=== PATIENT | female | born 1990 | race Caucasian/White ===

== ENCOUNTER 2018-04-14 12:32 | Observation (INO) | payer BC, MEDICAID ==
[~2018-04-14] VITALS: Ht 5787.1 cm; Wt 59.0 kg
[~2018-04-14 12:32] MED LIST: ALPR1TAB2 PO; BUPR300T53 PO; LIT300C PO; PRAZ5CAP PO; TRAZ-146 PO; VENL150C2 PO; VENL75CA55 PO; ZOLP10TA5 PO
[2018-04-14] MEDS ORDERED: normal saline 1000ml 1,000 ML IV ONE (12:45)
[2018-04-14] MEDS ORDERED: magnesium 2GM in 50ml NS 50 ML IV ONE (13:05)
[2018-04-14 13:08] LABS: BASOPHILS % (AUTO) 0 % (0-1); EOSINOPHILS # (AUTO) 0.2 X10'3 (0-0.9); EOSINOPHILS % (AUTO) 1.6 % (0-6); HEMATOCRIT 37.1 % (35.0-45.0); HEMOGLOBIN 12.6 g/dl (12.0-16.0); LYMPHOCYTES # (AUTO) 0.5 X10'3 (1.1-4.8); LYMPHOCYTES % (AUTO) 4.8 % (21-51); MEAN CORPUSCULAR HEMOGLOBIN 30.7 PG (27.0-31.0); MEAN CORPUSCULAR HGB CONC 33.9 % (33.0-36.5); MEAN CORPUSCULAR VOLUME 90.6 FL (78-98); MEAN PLATELET VOLUME 8.8 FL (7.4-10.4); MONOCYTES # (AUTO) 0.5 X10'3 (0-0.9); MONOCYTES % (AUTO) 4.6 % (2-12); NEUTROPHILS # (AUTO) 9.4 X10'3 (1.8-7.7); PLATELET COUNT 306 X10'3 (140-440); RED CELL DISTRIBUTION WIDTH 13.2 % (11.5-14.5); WHITE BLOOD COUNT 10.6 X10'3 (4.5-11.0)
[2018-04-14 13:16] LABS: ABG BASE EXCESS -4.3 mmol/L (-2.0-3.0); ABG HCO3 20.2 mmol/L (22.0-26.0); ABG OXYGEN SATURATION 96.2 % (95-98); ABG PCO2 (T) 35.3 mmHg (32.0-45.0); ABG PH (T) 7.375 (7.350-7.450); ABG PO2 (T) 86.8 mmHg (83-108); FCOHb 0.7 % (0.5-1.5); FMetHb 0.2 % (0.3-1.12); FO2Hb 95.3 % (94-100); TOTAL HEMOGLOBIN 12.5 G/dl (12.0-16.0)
[2018-04-14 13:22] LABS: ALANINE AMINOTRANSFERASE 16 U/L (12-78); ALBUMIN 3.3 G/DL (3.4-5.0); ALBUMIN/GLOBULIN RATIO 0.9 (1.1-1.5); ALKALINE PHOSPHATASE 63 IU/L (46-116); ANION GAP 11 (8-16); ASPARTATE AMINO TRANSFERASE 13 U/L (10-37); BILIRUBIN,TOTAL 0.3 MG/DL (0.1-1.0); BLOOD UREA NITROGEN 14 MG/DL (7-18); BUN/CREATININE RATIO 15.1 (6.6-38.0); CALCIUM 8.5 MG/DL (8.5-10.1); CHLORIDE 106 MMOL/L (99-107); CREATININE 0.93 MG/DL (0.40-0.90); GLUCOSE 117 MG/DL (70-104); POTASSIUM 3.4 MMOL/L (3.5-5.1); SODIUM 143 MMOL/L (135-145); TOTAL CARBON DIOXIDE 25.9 MMOL/L (24-32); TOTAL PROTEIN 6.8 G/DL (6.4-8.2); eGFR 71 ML/MIN
[2018-04-14 13:31] LABS: ETHANOL < 0.010 GM/DL (0.0-0.010)
[2018-04-14 13:37] LABS: ACETAMINOPHEN < 2.0 UG/ML (10-30)
[2018-04-14 13:55] LABS: URINE HCG NEGATIVE (NEG)
[2018-04-14 14:01] LABS: CLARITY,URINE CLEAR (Clear); COLOR,URINE YELLOW (Yellow); GLUCOSE, URINE NEGATIVE (Neg); KETONES,URINE NEGATIVE (Neg); LEUKOCYTE ESTERASE ,URINE NEGATIVE (Neg); NITRITES, URINE NEGATIVE (Neg); OCCULT BLOOD,URINE TRACE-INTACT (Neg); PROTEIN,URINE NEGATIVE (Neg); UROBILINOGEN,URINE 0.2 E.U/dL (0.2-1.0)
[2018-04-14 14:07] LABS: UA COLLECTION TYPE CLN CATCH MIDSTREAM
[2018-04-14 14:08] LABS: URINE AMPHETAMINE SCREEN POSITIVE (Neg); URINE BARBITUATE SCREEN NEGATIVE (Neg); URINE BENZODIAZEPINES SCREEN POSITIVE (Neg); URINE CANNABINOID SCREEN POSITIVE (Neg); URINE COCAINE SCREEN NEGATIVE (Neg); URINE METHADONE SCREEN NEGATIVE (Neg); URINE OPIATE SCREEN NEGATIVE (Neg); URINE PHENCYCLIDINE SCREEN NEGATIVE (Neg)
[2018-04-14 14:15] LABS: BACTERIA,URINE NONE SEEN /HPF (Neg); MUCUS STRANDS FEW /LPF (Neg); RBC,URINE 0-2 /HPF (0-2); SQUAMOUS EPITHELIAL CELL,UR FEW /LPF (FEW); WBC,URINE 0-4 /HPF (0-4)
[2018-04-14] MEDS ORDERED: iohexol 350MG/ML 100ml bottle IV ONE (18:19)
[2018-04-14] MEDS ORDERED: mag hydrox/Alum hydrox/simeth 30ml oral suspension PO PRN (23:00)
[2018-04-14] MEDS ORDERED: magnesium hydroxide 30ml (MOM) UD suspension PO PRN (23:00)
[2018-04-15] MEDS: dextrose 5%-1/2 normal saline 1,000 ML IV SCH ×4 (01:17→21:10)
[2018-04-15 01:37] VITALS: BP 98/61
[2018-04-15 06:03] LABS: BASOPHILS % (AUTO) 0.1 % (0-1); EOSINOPHILS # (AUTO) 0.2 X10'3 (0-0.9); EOSINOPHILS % (AUTO) 2.4 % (0-6); HEMOGLOBIN 11.2 g/dl (12.0-16.0); LYMPHOCYTES # (AUTO) 0.7 X10'3 (1.1-4.8); LYMPHOCYTES % (AUTO) 12.1 % (21-51); MEAN CORPUSCULAR HEMOGLOBIN 30.7 PG (27.0-31.0); MEAN CORPUSCULAR HGB CONC 33.9 % (33.0-36.5); MEAN CORPUSCULAR VOLUME 90.4 FL (78-98); MEAN PLATELET VOLUME 9.2 FL (7.4-10.4); MONOCYTES # (AUTO) 0.4 X10'3 (0-0.9); MONOCYTES % (AUTO) 6.8 % (2-12); NEUTROPHILS # (AUTO) 4.9 X10'3 (1.8-7.7); NEUTROPHILS % (AUTO) 78.6 % (42-75); PLATELET COUNT 255 X10'3 (140-440); RED BLOOD COUNT 3.65 X10'6 (4.20-5.60); RED CELL DISTRIBUTION WIDTH 13.2 % (11.5-14.5); WHITE BLOOD COUNT 6.2 X10'3 (4.5-11.0)
[2018-04-15 06:09] LABS: PARTIAL THROMBOPLASTIN TIME 25 SECONDS (22-32)
[2018-04-15 06:26] LABS: ALANINE AMINOTRANSFERASE 18 U/L (12-78); ALBUMIN 2.9 G/DL (3.4-5.0); ALBUMIN/GLOBULIN RATIO 0.9 (1.1-1.5); ALKALINE PHOSPHATASE 58 IU/L (46-116); ANION GAP 10 (8-16); ASPARTATE AMINO TRANSFERASE 14 U/L (10-37); BILIRUBIN,TOTAL 0.3 MG/DL (0.1-1.0); BLOOD UREA NITROGEN 5 MG/DL (7-18); BUN/CREATININE RATIO 5.5 (6.6-38.0); CALCIUM 8.2 MG/DL (8.5-10.1); CHLORIDE 108 MMOL/L (99-107); CREATININE 0.91 MG/DL (0.40-0.90); GLUCOSE 112 MG/DL (70-104); MAGNESIUM 2.1 MG/DL (1.5-2.4); PHOSPHORUS 2.8 MG/DL (2.3-4.5); POTASSIUM 3.1 MMOL/L (3.5-5.1); SODIUM 144 MMOL/L (135-145); TOTAL CARBON DIOXIDE 25.8 MMOL/L (24-32); TOTAL PROTEIN 6.3 G/DL (6.4-8.2); eGFR 73 ML/MIN
[2018-04-15] MEDS ORDERED: potassium Cl 40MEQ/NS 500ml 500 ML IV PRN ×2 (06:45)
[2018-04-15] MEDS ORDERED: magnesium 2GM in 50ml NS 50 ML IV PRN (06:45)
[2018-04-15] MEDS ORDERED: magnesium Cl slow-release 64mg tablet PO PRN (06:45)
[2018-04-15] MEDS ORDERED: magnesium 4gm in 100ml NS 100 ML IV PRN (06:45)
[2018-04-15] MEDS ORDERED: potassium Cl 20 mEq SR tablet PO PRN ×2 (06:45)
[2018-04-15 07:38] VITALS: BP 114/69
[2018-04-15] MEDS ORDERED: LORazepam 2 mg/ml vial IV ONE (09:20)
[2018-04-15 11:20] VITALS: BP 97/52
[2018-04-15] MEDS ORDERED: potassium Cl 20 mEq SR tablet PO STA (13:09)
[2018-04-15] MEDS: LORazepam 1 MG tablet PO PRN (16:57)
[2018-04-15] MEDS: ondansetron/PF 4mg/2ml inj IV PRN (17:18)
[2018-04-15 20:00] VITALS: BP 116/76
[2018-04-16] MEDS: LORazepam 1 MG tablet PO PRN ×2 (02:18→08:05)
[2018-04-16] MEDS: ondansetron/PF 4mg/2ml inj IV PRN (02:19)
[2018-04-16] MEDS ORDERED: acetaminophen 325mg tablet PO PRN (02:25)
[2018-04-16 05:54] LABS: BASOPHILS % (AUTO) 0.1 % (0-1); EOSINOPHILS # (AUTO) 0.1 X10'3 (0-0.9); EOSINOPHILS % (AUTO) 2.2 % (0-6); HEMATOCRIT 33.7 % (35.0-45.0); HEMOGLOBIN 11.5 g/dl (12.0-16.0); LYMPHOCYTES # (AUTO) 1.2 X10'3 (1.1-4.8); LYMPHOCYTES % (AUTO) 19.1 % (21-51); MEAN CORPUSCULAR VOLUME 91.1 FL (78-98); MEAN PLATELET VOLUME 9.3 FL (7.4-10.4); MONOCYTES # (AUTO) 0.5 X10'3 (0-0.9); MONOCYTES % (AUTO) 8.1 % (2-12); NEUTROPHILS # (AUTO) 4.3 X10'3 (1.8-7.7); NEUTROPHILS % (AUTO) 70.5 % (42-75); PLATELET COUNT 248 X10'3 (140-440); RED CELL DISTRIBUTION WIDTH 13.2 % (11.5-14.5); WHITE BLOOD COUNT 6.1 X10'3 (4.5-11.0)
[2018-04-16 06:07] LABS: PARTIAL THROMBOPLASTIN TIME 24 SECONDS (22-32); PROTHROMBIN TIME 9.9 SECONDS (9.0-12.0)
[2018-04-16 06:16] LABS: ALANINE AMINOTRANSFERASE 22 U/L (12-78); ALBUMIN 2.8 G/DL (3.4-5.0); ALBUMIN/GLOBULIN RATIO 0.9 (1.1-1.5); ALKALINE PHOSPHATASE 57 IU/L (46-116); ANION GAP 8 (8-16); ASPARTATE AMINO TRANSFERASE 14 U/L (10-37); BILIRUBIN,TOTAL 0.1 MG/DL (0.1-1.0); BLOOD UREA NITROGEN 3 MG/DL (7-18); BUN/CREATININE RATIO 3.5 (6.6-38.0); CALCIUM 8.7 MG/DL (8.5-10.1); CHLORIDE 109 MMOL/L (99-107); CREATININE 0.85 MG/DL (0.40-0.90); GLUCOSE 106 MG/DL (70-104); MAGNESIUM 1.8 MG/DL (1.5-2.4); PHOSPHORUS 2.3 MG/DL (2.3-4.5); POTASSIUM 4.1 MMOL/L (3.5-5.1); SODIUM 143 MMOL/L (135-145); TOTAL CARBON DIOXIDE 25.8 MMOL/L (24-32); eGFR 79 ML/MIN
[2018-04-16 07:09] VITALS: BP 114/72
[2018-04-16] MEDS: dextrose 5%-1/2 normal saline 1,000 ML IV SCH (08:06)
[2018-04-16 12:37] VITALS: BP 106/62
== END 2018-04-16 13:20 | disposition home or self-care (01) ==
LOC: ER 12:33 → ED HOLD 22:58 → CMPBEDREQ 04-15 01:24 → SUR 3N 04-15 01:33
PROVIDERS: ADMIT Emergency Medicine; ATTEND Family Medicine
DX: T43.591A Poisoning by other antipsychotics and neuroleptics, accidental (unintentional), initial encounter (principal); T56.891A Toxic effect of other metals, accidental (unintentional), initial encounter; T43.211A Poisoning by selective serotonin and norepinephrine reuptake inhibitors, accidental (unintentional), initial encounter; T39.8X1A Poisoning by other nonopioid analgesics and antipyretics, not elsewhere classified, accidental (unintentional), initial encounter; F12.90 Cannabis use, unspecified, uncomplicated; F15.10 Other stimulant abuse, uncomplicated; F31.9 Bipolar disorder, unspecified; F41.9 Anxiety disorder, unspecified; W18.2XXA Fall in (into) shower or empty bathtub, initial encounter
CPT/HCPCS: 36415; 36600; 70496; 70498; 71045; 80053; 80178; 80305; 80320; 80329; 81001; 81025; 82803; 83605; 83735; 84100; 84443; 85018; 85025; 85610; 85730; 87070; 96361; 96365; 96375; 96376; 99285; G0378; J2060; J2405; J3475; J7030; Q9967

== ENCOUNTER 2023-08-01 20:24 | Emergency (ER) | payer MEDICAID ==
[~2023-08-01] VITALS: Ht 160 cm; Wt 78.2 kg
[2023-08-01 20:24] VITALS: BP 124/76; PULSE 95; TEMP 98; O2SAT 98
[~2023-08-01 20:24] MED LIST changes: -TRAZ-146 PO; +TRAZ-256 PO; -VENL150C2 PO; +VENL150C4 PO
[2023-08-01] MEDS ORDERED: NAPR-56 PO (22:20)
[2023-08-01] MEDS ORDERED: ketorolac tromethamine 15mg/ml inj. IM ONE (22:20)
[2023-08-01 22:25] VITALS: RESP 18
[2023-08-01] MEDS ORDERED: ketorolac trometh. 30mg/ml inj. IM ONE (22:25)
== END 2023-08-01 22:29 | disposition home or self-care (01) ==
LOC: ER 20:24
DX: S39.012A Strain of muscle, fascia and tendon of lower back, initial encounter (principal); F41.9 Anxiety disorder, unspecified; F31.9 Bipolar disorder, unspecified; F17.200 Nicotine dependence, unspecified, uncomplicated; F12.90 Cannabis use, unspecified, uncomplicated; Z79.899 Other long term (current) drug therapy; X50.1XXA Overexertion from prolonged static or awkward postures, initial encounter; Y93.89 Activity, other specified; Y92.89 Other specified places as the place of occurrence of the external cause; Y99.8 Other external cause status
CPT/HCPCS: 96372; 99283; J1885

== ENCOUNTER 2024-12-24 23:29 | Emergency (ER) | payer MEDICAID ==
[~2024-12-24] VITALS: Ht 160 cm; Wt 84.5 kg
[~2024-12-24 23:29] MED LIST changes: -VENL150C4 PO; +VENL150C5 PO
[2024-12-24 23:36] VITALS: BP 122/52; PULSE 92; RESP 16; TEMP 98.3; O2SAT 100
== END 2024-12-25 02:24 | disposition left against medical advice (07) ==
LOC: ER 23:29
DX: Z20.2 Contact with and (suspected) exposure to infections with a predominantly sexual mode of transmission (principal); F31.9 Bipolar disorder, unspecified; F12.90 Cannabis use, unspecified, uncomplicated; F41.9 Anxiety disorder, unspecified; Z79.899 Other long term (current) drug therapy
CPT/HCPCS: 99281